=== PATIENT | male | born 1930 | race Hispanic/Latino ===

== ENCOUNTER 2017-11-24 23:43 | Observation (INO) | payer OTHER ==
[~2017-11-24] VITALS: Ht 167.6 cm; Wt 60.8 kg
[2017-11-25] MEDS ORDERED: DEXTROSE 10% 1,000 ML IV ONE (00:15)
[2017-11-25 00:23] LABS: BASOPHILS % 0.3 % (0.0-1.0); EOSINOPHILS % 0.2 % (0.0-6.0); HEMATOCRIT 38.1 % (38.2-49.6); HEMOGLOBIN 12.9 g/dL (14.0-18.0); LYMPHOCYTES # (AUTO) 0.5 (1.0-3.2); LYMPHOCYTES % 5.2 % (18.0-39.1); MEAN CORPUSCULAR HEMOGLOBIN 31.8 pg (28-32); MEAN CORPUSCULAR HGB CONC 33.9 g/dL (31-35); MEAN CORPUSCULAR VOLUME 93.8 fL (81-99); MONOCYTES # (AUTO) 0.9 (0.2-0.8); MONOCYTES % 8.7 % (4.4-11.3); NEUTROPHILS # (AUTO) 8.5 (2.1-6.9); NEUTROPHILS % 85.3 % (38.7-80.0); PLATELET COUNT 276 x10e3/uL (140-360); RED BLOOD COUNT 4.06 x10e6/uL (4.3-5.7); RED CELL DISTRIBUTION WIDTH 13.2 % (11.7-14.4)
[2017-11-25] MEDS ORDERED: SIMVASTATIN10 MG PO (00:24)
[2017-11-25] MEDS ORDERED: LOSARTAN POTASS25 MG PO (00:24)
[2017-11-25] MEDS ORDERED: FINASTERIDE5 MG PO (00:24)
[2017-11-25] MEDS ORDERED: GLIMEPIRIDE2 MG PO (00:24)
[2017-11-25] MEDS ORDERED: LEVOTHYROXINE88 MCG PO (00:24)
[2017-11-25 00:36] LABS: ALANINE AMINOTRANSFERASE 9 IU/L (0-55); ALBUMIN 3.4 g/dL (3.5-5.0); ALBUMIN/GLOBULIN RATIO 0.9 (0.8-2.0); ALKALINE PHOSPHATASE 79 IU/L (40-150); ANION GAP 13.8 mmol/L (8-16); BLOOD UREA NITROGEN 18 mg/dL (7-26); BUN/CREATININE RATIO 17 (6-25); CALCIUM 9.4 mg/dL (8.4-10.2); CARBON DIOXIDE 25 mmol/L (22-29); CHLORIDE 103 mmol/L (98-107); CREATINE KINASE 65 IU/L (30-200); CREATININE, SERUM 1.09 mg/dL (0.72-1.25); EST GLOMERULAR FILTRATION RATE > 60 ML/MIN (60-); GLUCOSE 115 mg/dL (74-118); POTASSIUM 3.8 mmol/L (3.5-5.1); SODIUM 138 mmol/L (136-145)
[2017-11-25 00:39] LABS: BILIRUBIN,URINE NEGATIVE (NEGATIVE); CLARITY,URINE CLEAR (CLEAR); COLOR,URINE YELLOW (YELLOW); KETONES,URINE NEGATIVE (NEGATIVE); LEUKOCYTE ESTERASE ,URINE NEGATIVE (NEGATIVE); NITRITE,URINE NEGATIVE (NEGATIVE); PROTEIN,URINE DIPSTICK NEGATIVE (NEGATIVE); URINE UROBILINOGEN 0.2 mg/dL (0.2 - 1)
[2017-11-25 00:45] LABS: EPITHELIAL CELLS,URINE RARE /LPF; RBC,URINE 0-5 /HPF (0-5); WBC,URINE (MAN) 0-5 /HPF (0-5)
--- NOTE | 2017-11-25 01:37 | Diagnostic Imaging Report ---
CHEST SINGLE (PORTABLE), 11/25/2017 12:10 AM Technique: CHEST SINGLE (PORTABLE) Comparison: None available. Clinical history: Hypoglycemia Findings: Mildly enlarged cardiac silhouette, accentuated by portable technique. Prominence of the left hilum. Linear bibasilar atelectasis/scarring. No pleural effusion or pneumothorax. Impression: 1. Prominent left hilum which may be related to technique. Recommend follow-up upright PA and lateral to better assess for potential adenopathy. 2. No acute abnormality. Signed by: Dr Sonia Woods MD on 11/25/2017 1:34 AM
[2017-11-25] MEDS ORDERED: DEXTROSE 50% SYRINGE 50 ML IV PRN (01:45)
[2017-11-25] MEDS ORDERED: ONDANSETRON HCL 4 MG ORAL DISINTEGRATING TAB PO PRN (01:45)
[2017-11-25] MEDS ORDERED: ACETAMINOPHEN 325 MG TAB PO PRN (01:45)
--- OUTSIDE RECORDS SUMMARY | 2017-11-25 02:10 | XMS REPORT ---
Author Author [facility] Address Unknown Phone Unavailable Care Team Providers Care Dredge Mechanic Name Role Phone JUVE VILLASEÑOR Unavailable Unavailable Problems This patient has no known problems. Allergies, Adverse Reactions, Alerts This patient has no known allergies or adverse reactions. Medications This patient has no known medications. Results Test Description Test Time Test Comments Text Results Atomic Results Result Comments CHEST SINGLE (PORTABLE) [place] [address] Patient Name: CHARLIE TURK MR #: [id number] : 1930 Age/Sex: 87/M Req #: [id number] Adm Physician: Ordered by: JUVE VILLASEÑOR MD Report #: [id number] Location: ER Room/Bed: Procedure: [id number] DX/CHEST SINGLE (PORTABLE) Exam Date: Exam Time: REPORT STATUS: Signed CHEST SINGLE (PORTABLE), 12:10 AM Technique: CHEST SINGLE (PORTABLE) Comparison: None available. Clinical history: Hypoglycemia Findings: Mildly enlarged cardiac silhouette, accentuated by portable technique. Prominence of the left hilum. Linear bibasilar atelectasis/scarring. No pleural effusion or pneumothorax. Impression: 1. Prominent left hilum which may be related to technique. Recommend follow-up upright PA and lateral to better assess for potential adenopathy. 2. No acute abnormality. Signed by: Dr Shadi Woods MD on 11/25/2017 1:34 AM Dictated By: SHADI WOODS MD 3 Transcribed By: ASTER on 11/25/17133 COPY TO: JUVE VILLASEÑOR MD
[2017-11-25 03:03] VITALS: BP 139/62
[2017-11-25 03:04] VITALS: BP 139/62
[2017-11-25 08:00] VITALS: BP 134/72
[2017-11-25 08:20] VITALS: BP 134/72
[2017-11-25] MEDS: INSULIN REGULAR, HUMAN 100 UNIT/1 ML 3ML VIAL SQ SCH ×2 (08:28→11:30)
--- NOTE | 2017-11-25 15:21 | Discharge Summary ---
PCP: Dr. Dru Bliss. ATTENDING PHYSICIAN: Dr. Lex Moseley. CHIEF COMPLIANT: Altered mental status with low blood sugar. HISTORY: Patient is a pleasant 87-year-old male. According to him, his blood sugar was yesterday in the 80 to 110 to 120 prior to his taking medication, but apparently he was taking Amaryl 2 mg once a day. He was confused and lethargic and patient was brought into the hospital. Blood sugar was in the 50 to 60 per ER note. The patient is otherwise stable. Blood sugar is much better now. He has received D10 IV. He is eating breakfast and lunch. The patient will go home after dinner. Patient is stable. Discussed with the patient and his daughter. I went over all his medications. He will stop Amaryl 2 mg daily, but resume his other home medications. The patient is stable, discharged home today. FINAL DIAGNOSIS 1. Hypoglycemia secondary to Amaryl. 2. Baseline hypertension. 3. Hyperlipidemia. 4. Benign enlarged prostate. 5. Hypothyroidism. Patient is stable and will go home today after dinner. Job#: [id number] LORETO
[2017-11-25 16:00] VITALS: BP 151/84
[2017-11-25] MEDS ORDERED: SIMVASTATIN 20 MG TAB PO SCH (21:00)
[2017-11-25] MEDS ORDERED: FINASTERIDE 5 MG TAB PO SCH (21:00)
[2017-11-26] MEDS ORDERED: LEVOTHYROXINE SODIUM 88 MCG TAB PO SCH (06:00)
[2017-11-26] MEDS ORDERED: LOSARTAN POTASSIUM 25 MG TAB PO SCH (09:00)
== END 2017-11-25 17:59 | disposition home or self-care (01) ==
LOC: ER 23:43 → ERHOLD 11-25 01:34 → MED/SURG2 11-25 02:38
PROVIDERS: ADMIT Internal Medicine; ATTEND Internal Medicine
DX: E11.649 Type 2 diabetes mellitus with hypoglycemia without coma (principal); T38.3X5A Adverse effect of insulin and oral hypoglycemic [antidiabetic] drugs, initial encounter; R41.82 Altered mental status, unspecified; I10 Essential (primary) hypertension; E78.5 Hyperlipidemia, unspecified; E03.9 Hypothyroidism, unspecified; N40.0 Benign prostatic hyperplasia without lower urinary tract symptoms; Y92.019 Unspecified place in single-family (private) house as the place of occurrence of the external cause
CPT/HCPCS: 36415; 71045; 80053; 81001; 82550; 82553; 82948; 83036; 83735; 84443; 84484; 85025; 87086; 99284; G0378

== ENCOUNTER 2019-06-08 15:59 | Emergency (ER) | payer OTHER ==
[~2019-06-08] VITALS: Ht 167.6 cm; Wt 60.8 kg
[~2019-06-08 15:59] MED LIST: FINASTERIDE5 MG PO; GLIMEPIRIDE2 MG PO; LEVOTHYROXINE88 MCG PO; LOSARTAN POTASS25 MG PO; SIMVASTATIN10 MG PO
[2019-06-08] MEDS ORDERED: ARICEPT5 MG PO (16:08)
[2019-06-08] MEDS ORDERED: ASPIRIN81 MG PO (16:08)
[2019-06-08] MEDS ORDERED: SODIUM CHLORIDE 0.9% 500ML 500 ML IV ONE (16:30)
[2019-06-08 17:04] LABS: BASOPHILS % 0.4 % (0.0-1.0); EOSINOPHILS % 0.1 % (0.0-6.0); HEMATOCRIT 40.3 % (38.2-49.6); HEMOGLOBIN 13.3 g/dL (14.0-18.0); LYMPHOCYTES # (AUTO) 1.4 (1.0-3.2); LYMPHOCYTES % 17.7 % (18.0-39.1); MEAN CORPUSCULAR HEMOGLOBIN 31.7 pg (28-32); MEAN CORPUSCULAR VOLUME 96.2 fL (81-99); MONOCYTES % 13.2 % (4.4-11.3); NEUTROPHILS # (AUTO) 5.4 (2.1-6.9); NEUTROPHILS % 68.1 % (38.7-80.0); PLATELET COUNT 282 x10e3/uL (140-360); RED BLOOD COUNT 4.19 x10e6/uL (4.3-5.7); RED CELL DISTRIBUTION WIDTH 12.8 % (11.7-14.4)
--- NOTE | 2019-06-08 17:07 | Diagnostic Imaging Report ---
Examination: CT BRAIN WO CONTRAST History:Right head and eye pain; increasing confusion; frequent falls. Comparison studies:None Technique: Axial images were obtained from the skull base to the vertex. Coronal and sagittal images reconstructed from the axial data. Dose modulation, iterative reconstruction, and/or weight based adjustment of the mA/kV was utilized to reduce the radiation dose to as low as reasonably achievable. Intravenous contrast: None Findings: Scalp: No abnormalities. Bones: No fractures, blastic or lytic lesions. Brain sulci: Volume loss for age. Ventricles: As below. Extra-axial space: No abnormalities. 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 There are patchy and confluent areas of T2/FLAIR hyperintensity in the periventricular and subcortical white matter, nonspecific. No masses, or acute or chronic cortical based vascular insults. Sellar/suprasellar region: No abnormalities. Craniocervical junction: Patent foramen magnum. No Chiari one malformation. 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 This finding was conveyed over the phone to Dr. Moore on 06/08/2019 at 4:55pm. Moderate volume loss and chronic microvascular ischemic change. Signed by: Dr. Vy Shen M.D. on 06/08/2019 5:04 PM
[2019-06-08 17:11] LABS: INR 0.97; PROTHROMBIN TIME 13.4 seconds (11.9-14.5)
[2019-06-08 17:12] LABS: PARTIAL THROMBOPLASTIN TIME 45.7 seconds (23.8-35.5)
--- NOTE | 2019-06-08 17:15 | NUR ---
FAMILY BEING UPDATED ON PLAN OF CARE AND TRANSFER TO [facility] ICU BY DR. VILLASEÑOR, ALL QUESITONS ANSWERED AND FAMILY VERBALIZES UNDERSTANDING OF PLAN OF CARE.
--- NOTE | 2019-06-08 17:17 | Diagnostic Imaging Report ---
EXAMINATION: CHEST SINGLE (PORTABLE) INDICATION: OFF-BALANCE, FALLS COMPARISON: . FINDINGS: TUBES and LINES: None. LUNGS: Lungs are well inflated. Azygos fissure. There is no evidence of pneumonia or pulmonary edema. PLEURA: No pleural effusion or pneumothorax. HEART AND MEDIASTINUM: The cardiomediastinal silhouette is unremarkable. BONES AND SOFT TISSUES: No acute osseous lesion. Soft tissues are unremarkable. UPPER ABDOMEN: No free air under the diaphragm. IMPRESSION: No acute thoracic abnormality. Signed by: Dr. Koby Schneider M.D. on 06/08/2019 5:14 PM
--- NOTE | 2019-06-08 17:17 | NUR ---
DR. VILLASEÑOR GIVING DOC TO DOC HANDOFF REPORT TO PHYSICIAN AT [facility].
--- NOTE | 2019-06-08 17:18 | NUR ---
RECEIVING MD DR. REYES
--- NOTE | 2019-06-08 17:18 | Diagnostic Imaging Report ---
LOWER LEG RIGHT - 3 views HISTORY: Pain status post fall. COMPARISON: None available. FINDINGS: Bones: No acute displaced fracture. Osseous alignment is within normal limits. Small plantar calcaneal enthesophyte. Joints: The joint spaces are well-maintained. Soft tissues: Vascular calcifications. IMPRESSION: No acute radiographic abnormality. Signed by: Dr. Koby Schneider M.D. on 06/08/2019 5:15 PM
--- NOTE | 2019-06-08 17:19 | Diagnostic Imaging Report ---
PELVIS AP 1-2 VIEWS - 3 views HISTORY: Pain status fall. COMPARISON: None available. FINDINGS: Bones: No acute displaced fracture. Osseous alignment is within normal limits. Joints: The joint spaces are well-maintained. Soft tissues: The soft tissues appear unremarkable. IMPRESSION: No acute radiographic abnormality. Signed by: Dr. Koby Schneider M.D. on 06/08/2019 5:16 PM
[2019-06-08 17:20] LABS: ALBUMIN 3.6 g/dL (3.5-5.0); ANION GAP 12.8 mmol/L (8-16); CALCIUM 9.8 mg/dL (8.4-10.2); CREATININE, SERUM 1.22 mg/dL (0.72-1.25); POTASSIUM 3.8 mmol/L (3.5-5.1)
[2019-06-08 17:25] LABS: BILIRUBIN,URINE NEGATIVE (NEGATIVE); CLARITY,URINE SL CLOUDY (CLEAR); COLOR,URINE STRAW (YELLOW); KETONES,URINE NEGATIVE (NEGATIVE); LEUKOCYTE ESTERASE ,URINE NEGATIVE (NEGATIVE); NITRITE,URINE NEGATIVE (NEGATIVE); PROTEIN,URINE DIPSTICK NEGATIVE (NEGATIVE); URINE UROBILINOGEN 1 mg/dL (0.2 - 1)
[2019-06-08 17:36] LABS: BACTERIA,URINE FEW /HPF; MUCUS,URINE FEW (RARE)
--- NOTE | 2019-06-08 17:37 | NUR ---
REPORT GIVEN TO DONAVAN ALARCON AT [facility]UR[facility] ICU RECEIVING NURSE FOR BED [id number] AT THIS TIME.
--- NOTE | 2019-06-08 17:39 | NUR ---
[facility] CALLED FOR GROUND TRANSPORT TO [facility] ICU.
--- NOTE | 2019-06-08 17:58 | Diagnostic Imaging Report ---
Examination: CT CERVICAL SPINE WO CONTRAST HISTORY:Neck pain and injury after fall. COMPARISON:None. TECHNIQUE: Multidetector helical axial images were obtained without contrast from the foramen magnum to T1. Coronal and sagittal reformatted images were done. Bone and soft tissue windows were evaluated. Dose modulation, iterative reconstruction, and/or weight based adjustment of the mA/kV was utilized to reduce the radiation dose to as low as reasonably achievable. FINDINGS: Limited study due to motion artifact. Alignment:Normal alignment and lordosis. Vertebrae: Normal height and density. No acute fracture, infection or neoplasm. Disc space heights: Normal height. Caliber of spinal canal: Developmentally normal. Posterior fossa and craniocervical junction: Foramen magnum patent. No Chiari 1 malformation. Soft tissues: No abnormality. Degenerative changes: Severe C1-C2 joint space narrowing. Anterior osteophytes from C4-C6. No disc herniation or canal stenosis. Visualized lung apices: No abnormalities. IMPRESSION: No acute abnormalities. Signed by: Dr. Vy Shen M.D. on 06/08/2019 5:55 PM
[2019-06-08 18:57] VITALS: BP 144/67
== END 2019-06-08 18:50 | disposition short-term general hospital (02) ==
LOC: ER 15:59
DX: I61.8 Other nontraumatic intracerebral hemorrhage (principal); I10 Essential (primary) hypertension; E87.1 Hypo-osmolality and hyponatremia; E11.9 Type 2 diabetes mellitus without complications; Z79.82 Long term (current) use of aspirin; R51 Headache; R26.2 Difficulty in walking, not elsewhere classified; R41.0 Disorientation, unspecified; R29.6 Repeated falls
CPT/HCPCS: 36415; 70450; 71045; 72125; 72170; 73590; 80053; 81001; 82550; 82553; 83735; 84484; 85025; 85610; 85730; 87086; 93005; 99284; J7040